=== PATIENT | female | born 1970 | race Caucasian/White ===

== ENCOUNTER 2020-01-14 10:23 | Emergency (ER) | payer OTHER ==
[~2020-01-14] VITALS: Ht 162.6 cm; Wt 88.0 kg
[2020-01-14] MEDS ORDERED: IBUPROFEN 600MG TABLET PO ONE (10:45)
[2020-01-14] MEDS ORDERED: TETRACAINE 0.5% OPHTH DROPS 4ML BOTHEYE ONE (11:00)
[2020-01-14 12:05] VITALS: BP 144/97
== END 2020-01-14 12:13 | disposition home or self-care (01) ==
LOC: ER 10:33
DX: H57.89 Other specified disorders of eye and adnexa (principal)
CPT/HCPCS: 99283